=== PATIENT | female | born 1955 | race Caucasian/White ===

== ENCOUNTER 2016-07-24 12:33 | Emergency (ER) | payer BC ==
[~2016-07-24] VITALS: Ht 167.6 cm; Wt 104.5 kg
[2016-07-24] MEDS ORDERED: BENICAR HCT 401 EACH PO (12:59)
[2016-07-24 14:30] VITALS: BP 137/75
== END 2016-07-24 14:32 | disposition home or self-care (01) ==
LOC: EME 12:33
DX: M25.561 Pain in right knee (principal); S69.92XA Unspecified injury of left wrist, hand and finger(s), initial encounter; M25.572 Pain in left ankle and joints of left foot; W10.8XXA Fall (on) (from) other stairs and steps, initial encounter; I10 Essential (primary) hypertension; Z85.820 Personal history of malignant melanoma of skin; Z96.659 Presence of unspecified artificial knee joint
CPT/HCPCS: 73110; 73564; 73630; 99281; 99284